=== PATIENT | male | born 1970 | race Caucasian/White ===

== ENCOUNTER 2018-10-30 17:14 | Emergency (ER) | payer OTHER ==
[~2018-10-30] VITALS: Ht 180.3 cm; Wt 90.7 kg
[2018-10-30] MEDS ORDERED: PRINIVIL20 M1 PO (17:27)
[2018-10-30 17:39] LABS: ABSOLUTE NEUTROPHILS 5.2 thou/uL (1.4-8.2); HEMATOCRIT 42.6 % (42.0-52.0); HEMOGLOBIN 14.8 gm/dL (14.0-18.0); LYMPHOCYTES 30.4 % (24.0-44.0); MCH 29.7 pg (26.0-34.0); MCHC 34.7 g/dL (28.0-37.0); MCV 85.6 fL (80.0-100.0); MONOCYTES 6.6 % (1.0-8.0); PLATELET COUNT 175 thou/uL (150-400); RBC 4.98 mil/uL (4.50-6.00); RDW 13.5 % (10.5-14.5); WBC 8.7 thou/uL (4.0-11.0)
[2018-10-30 17:43] LABS: ANION GAP 6 mmol/L (7-16); BUN 25 mg/dL (7-18); CALCIUM 9.6 mg/dL (8.5-10.1); CHLORIDE 102 mmol/L (98-107); CO2 27 mmol/L (21-32); CREATININE 1.1 mg/dL (0.7-1.3); GLUCOSE 91 mg/dL (74-106); POTASSIUM 3.9 mmol/L (3.5-5.1); SODIUM 135 mmol/L (136-145)
[2018-10-30 17:51] LABS: TROPONIN-I <0.06 ng/mL (<0.06)
[2018-10-30 18:24] VITALS: BP 128/81
--- NOTE | 2018-10-31 07:54 | EKG ---
[place] [address] [address] [facility] [place] [address] ELECTROCARDIOGRAM REPORT Name: TERESITA VALLE [id number] Admission: 10/30/18 Attend Phys: Discharge: 10/30/18 Date of : 66 Report #: [id number] THIS REPORT FOR: //name// [facility] ED Test Date: 2018-10-30 Test Time: 17:24:32 Pat Name: TERESITA VALLE Department: Room: Gender: M [employer]ef [employer]: [place] : 1970 Requested By: Chikis Isbell Order Number: [id number] MD: Jorge Luis Ko Measurements Intervals [place] Rate: 70 P: 56 MD: 174 QRS: -32 QRSD: 101 T: 23 QT: 394 QTc: 426 Interpretive Statements Sinus rhythm Left axis deviation No previous ECG available for comparison Electronically Signed On 10-31-2018 7:54:42 AGENTS' RECORDS CLERK by Jorge Luis Ko [email or web address] <ELECTRONICALLY SIGNED> By: Jorge Luis Ko MD, [facility] 10/31/18 0754 1724 1724 Jorge Luis Ko MD, FACC /EPI
== END 2018-10-30 18:25 | disposition home or self-care (01) ==
LOC: ER 17:14
PROVIDERS: Emergency Medicine
DX: R07.89 Other chest pain (principal); I10 Essential (primary) hypertension